=== PATIENT | male | born 1960 | race Caucasian/White ===

== ENCOUNTER → 2016-11-17 | Outpatient (CLI) | payer OTHER ==
[~2016-11-17] MED LIST: ASPI-496 PO; HYDR25TA6 PO; ISOS30TA8 PO; LISI40TA PO; METO25TA35 PO; PRAM0.255 PO; SIMV20TA3 PO
== END | disposition home or self-care (01) ==
LOC: CFH 15:47
PROVIDERS: ATTEND Nurse Practitioner
DX: I25.10 Atherosclerotic heart disease of native coronary artery without angina pectoris (principal)
CPT/HCPCS: 93880

== ENCOUNTER → 2018-07-24 | Outpatient (CLI) | payer OTHER | END | disposition home or self-care (01) | LOC: CFH 09:33 | PROVIDERS: ATTEND Nurse Practitioner Family | DX: R41.3 Other amnesia (principal) | CPT/HCPCS: 70551 ==